=== PATIENT | female | born 1950 | race Caucasian/White ===

== ENCOUNTER 2020-04-19 12:53 | Outpatient (CLI) | payer MEDICARE ==
[~2020-04-19 12:53] MED LIST: ACET500T76 PO; AZIT250T89 PO; CANA300T PO; CARV25TA12 PO; EZET10TA70 PO; FURO40TA6 PO; GABA600T7 PO; HYDR-3240 PO; INSU100I17 SQ; LAMO200T3 PO; LEVO50TA5 PO; LINA290C PO; LOSA100T14 PO; METF1000 PO; OSEL75CA26 PO; PARO20TA4 PO; POTA8CAP20 PO; PRAM1TAB5 PO; PRAV80TA2 PO; TEMA30CA PO
[2020-04-19] MEDS ORDERED: ATOR40TA78 PO (14:22)
[2020-04-19] MEDS ORDERED: OZEMPIC SC (14:22)
[2020-04-19] MEDS ORDERED: EMPA25TA PO (14:22)
[2020-04-19] MEDS ORDERED: GABA800T5 PO (14:22)
[2020-04-19] MEDS ORDERED: LISI-167 PO (14:22)
[2020-04-19] MEDS ORDERED: INSU100I7 SQ-INSULIN (14:22)
[2020-04-19] MEDS ORDERED: LINA290C PO (14:22)
[2020-04-19 15:25] LABS: ALBUMIN 3.8 g/dL (3.4-5.0); ANION GAP 6 mmol/L (5-15); CALCIUM 9.5 mg/dL (8.5-10.1); CHLORIDE 103 mmol/L (98-107)
[2020-04-19 15:28] LABS: ALANINE AMINOTRANSFERASE 36 U/L (12-78); ALKALINE PHOSPHATASE 125 U/L (45-117); BILIRUBIN,TOTAL 0.5 mg/dL (0.2-1.0); CREATININE 0.85 mg/dL (0.55-1.02); TOTAL PROTEIN 7.8 g/dL (6.4-8.2)
== END 2020-04-19 23:59 | disposition home or self-care (01) ==
LOC: STAR 12:53
PROVIDERS: ATTEND Orthopaedic Surgery
DX: Z01.818 Encounter for other preprocedural examination (principal); G56.23 Lesion of ulnar nerve, bilateral upper limbs
CPT/HCPCS: 36415; 80053; 93005

== ENCOUNTER → 2020-04-22 | Outpatient (CLI) | payer MEDICARE ==
[~2020-04-22] MED LIST changes: +ATOR40TA78 PO; +EMPA25TA PO; +GABA800T5 PO; +INSU100I7 SQ-INSULIN; +LISI-167 PO; +OZEMPIC SC
== END | disposition home or self-care (01) ==
LOC: STAR 14:08
PROVIDERS: ATTEND Anesthesiology
DX: Z01.812 Encounter for preprocedural laboratory examination (principal); Z20.828 Contact with and (suspected) exposure to other viral communicable diseases
CPT/HCPCS: 36415; 87635

== ENCOUNTER 2020-04-27 08:19 | Day surgery (SDC) | payer MEDICARE ==
[~2020-04-27] VITALS: Ht 163.8 cm; Wt 88.3 kg
[~2020-04-27 08:19] MED LIST changes: +BUPIVACAINE/PF 0.5% ONE; +LIDOCAINE 1%, 20ML ONE
[2020-04-27] MEDS ORDERED: LACTATED RINGERS 1,000 ML IV SCH (08:52)
[2020-04-27] MEDS ORDERED: CHLORHEXIDINE 15 ML UDC MM ONE (09:00)
[2020-04-27 09:03] VITALS: BP 116/72
[2020-04-27] MEDS ORDERED: MIDAZOLAM 1 MG/ML, 2ML ONE (10:06)
[2020-04-27] MEDS ORDERED: FENTANYL PF 100 MCG/2ML ONE ×2 (10:06→11:26)
[2020-04-27] MEDS ORDERED: ONDANSETRON 2MG/ML, 2ML ONE ×2 (10:08)
[2020-04-27] MEDS ORDERED: DEXAMETHASONE 4 MG/ML, 1ML ONE ×2 (10:08)
[2020-04-27] MEDS ORDERED: PROPOFOL 10 MG/ML, 20ML ONE (10:09)
[2020-04-27] MEDS ORDERED: LIDOCAINE 1%, 20ML INFIL ONE (10:28)
[2020-04-27] MEDS ORDERED: BUPIVACAINE/PF 0.5% INFIL ONE (10:29)
[2020-04-27] MEDS ORDERED: DIAZEPAM 5 MG/ML, 2ML IVPush PRN (10:30)
[2020-04-27] MEDS ORDERED: ACETAMINOPHEN 325 MG TABLET PO PRN (10:30)
[2020-04-27] MEDS ORDERED: MEPERIDINE/PF 25MG/0.5ML IVPush PRN (10:30)
[2020-04-27] MEDS ORDERED: ONDANSETRON 2MG/ML, 2ML IVPush PRN (10:30)
[2020-04-27] MEDS ORDERED: OXYcodone 5 MG/5 ML ORAL.SOL UDC PO PRN (10:30)
[2020-04-27] MEDS ORDERED: DIPHENHYDRAMINE 50 MG/ML, 1ML IVPush PRN ×2 (10:30)
[2020-04-27] MEDS ORDERED: EPHEDRINE 50 MG/ML, 1ML IVPush PRN (10:30)
[2020-04-27] MEDS ORDERED: LABETALOL 5MG/ML, 20ML IV PRN (10:30)
[2020-04-27] MEDS ORDERED: PROMETHAZINE 25 MG/ML, 1ML IVPush PRN (10:30)
[2020-04-27] MEDS ORDERED: MIDAZOLAM 1 MG/ML, 2ML IV PRN (10:30)
[2020-04-27] MEDS ORDERED: hydrALAzine 20 MG/ML, 1ML IV PRN (10:30)
[2020-04-27] MEDS ORDERED: HYDROmorphone 1 MG/ML, 1ML INJ IVPush PRN (10:30)
[2020-04-27] MEDS ORDERED: ALBUTEROL SULFATE 2.5 MG/3 ML NPPB PRN (10:30)
[2020-04-27] MEDS ORDERED: PROMETHAZINE 12.5 MG SUPP PR PRN (10:30)
[2020-04-27] MEDS ORDERED: OXYcodone 5 MG/5 ML ORAL.SOL UDC ONE (11:26)
[2020-04-27] MEDS: FENTANYL PF 100 MCG/2ML IV PRN ×2 (11:30→11:35)
[2020-04-27] MEDS ORDERED: DIAZEPAM 5 MG TABLET PO ONE (12:30)
[2020-04-27] MEDS ORDERED: KETOROLAC 30 MG/1 ML IVPush ONE (12:30)
== END 2020-04-27 14:15 | disposition home or self-care (01) ==
LOC: OUT 08:19
PROVIDERS: ATTEND Orthopaedic Surgery
DX: G56.22 Lesion of ulnar nerve, left upper limb (principal); I10 Essential (primary) hypertension; E11.9 Type 2 diabetes mellitus without complications; G47.33 Obstructive sleep apnea (adult) (pediatric); E03.9 Hypothyroidism, unspecified; Z88.0 Allergy status to penicillin; Z88.8 Allergy status to other drugs, medicaments and biological substances; Z86.718 Personal history of other venous thrombosis and embolism; Z79.899 Other long term (current) drug therapy; Z87.891 Personal history of nicotine dependence; Z72.89 Other problems related to lifestyle; Z79.4 Long term (current) use of insulin; Z82.49 Family history of ischemic heart disease and other diseases of the circulatory system; Z83.3 Family history of diabetes mellitus
CPT/HCPCS: 64718; 82962; J1100; J1885; J2250; J2405; J2704; J3010; J7120

== ENCOUNTER → 2020-06-10 | Outpatient (CLI) | payer MEDICARE ==
[~2020-06-10] MED LIST changes: +Acyclovir PO; +BACL-19 PO; +BETAMETHASONE 6 MG/ML, 5ML IM ONE; +DIPH25CA61 PO; +HYDR-3245 PO; -LIDOCAINE 1%, 20ML ONE; +LIDOCAINE/PF 1%, 30ML ONE; +MULT-658 PO; +OXYC-307 PO; +ROPI0.5T4 PO; +percocet PO; +vicodin PO
[2020-06-10 17:13] LABS: CHLORIDE 108 mmol/L (98-107)
[2020-06-10 17:21] LABS: ALANINE AMINOTRANSFERASE 20 U/L (12-78); ALBUMIN 3.5 g/dL (3.4-5.0); ALKALINE PHOSPHATASE 110 U/L (45-117); ANION GAP 4 mmol/L (5-15); BILIRUBIN,TOTAL 0.3 mg/dL (0.2-1.0); CALCIUM 9.3 mg/dL (8.5-10.1); CREATININE 0.74 mg/dL (0.55-1.02); TOTAL PROTEIN 7.2 g/dL (6.4-8.2)
== END | disposition home or self-care (01) ==
LOC: STAR 14:17
PROVIDERS: ATTEND Orthopaedic Surgery
DX: Z01.812 Encounter for preprocedural laboratory examination (principal); Z20.828 Contact with and (suspected) exposure to other viral communicable diseases; G56.20 Lesion of ulnar nerve, unspecified upper limb; M65.341 Trigger finger, right ring finger
CPT/HCPCS: 36415; 80053; 87635

== ENCOUNTER 2020-06-15 06:13 | Day surgery (SDC) | payer MEDICARE ==
[~2020-06-15] VITALS: Ht 162.6 cm; Wt 88.0 kg
[~2020-06-15 06:13] MED LIST changes: -BETAMETHASONE 6 MG/ML, 5ML IM ONE; -BUPIVACAINE/PF 0.5% ONE; -LIDOCAINE/PF 1%, 30ML ONE
[2020-06-15 06:56] VITALS: BP 132/78
[2020-06-15] MEDS ORDERED: LACTATED RINGERS 1,000 ML IV SCH (07:00)
[2020-06-15] MEDS ORDERED: CHLORHEXIDINE 15 ML UDC MM ONE (07:00)
[2020-06-15] MEDS ORDERED: CHLORHEXIDINE 15 ML UDC ONE (07:02)
[2020-06-15] MEDS ORDERED: MEPERIDINE/PF 25MG/0.5ML IVPush PRN (07:30)
[2020-06-15] MEDS ORDERED: PROMETHAZINE 25 MG/ML, 1ML IVPush PRN (07:30)
[2020-06-15] MEDS ORDERED: LABETALOL 5MG/ML, 20ML IV PRN (07:30)
[2020-06-15] MEDS ORDERED: HYDROmorphone 1 MG/ML, 1ML INJ IVPush PRN (07:30)
[2020-06-15] MEDS ORDERED: ALBUTEROL SULFATE 2.5 MG/3 ML NPPB PRN (07:30)
[2020-06-15] MEDS ORDERED: ACETAMINOPHEN 325 MG TABLET PO PRN (07:30)
[2020-06-15] MEDS ORDERED: OXYcodone 5 MG/5 ML ORAL.SOL UDC PO PRN ×2 (07:30→12:00)
[2020-06-15] MEDS ORDERED: LORazepam 2 MG/ML, 1ML IVPush PRN (07:30)
[2020-06-15] MEDS ORDERED: MIDAZOLAM 1 MG/ML, 2ML ONE (08:04)
[2020-06-15] MEDS ORDERED: FENTANYL PF 100 MCG/2ML ONE ×3 (08:04→09:19)
[2020-06-15] MEDS ORDERED: DEXAMETHASONE 4 MG/ML, 1ML ONE (08:06)
[2020-06-15] MEDS ORDERED: PROPOFOL 10 MG/ML, 20ML ONE (08:06)
[2020-06-15] MEDS ORDERED: ONDANSETRON 2MG/ML, 2ML ONE (08:06)
[2020-06-15] MEDS ORDERED: CEFAZOLIN 1,000 MG ONE (08:06)
[2020-06-15] MEDS ORDERED: PHENYLEPHRINE 10 MG/ML ONE (08:09)
[2020-06-15] MEDS ORDERED: LIDOCAINE-MPF 2% ,5ML ONE (08:31)
[2020-06-15] MEDS: FENTANYL PF 100 MCG/2ML IV PRN ×4 (09:09→09:56)
[2020-06-15] MEDS ORDERED: ACETAMINOPHEN 650 MG/20.3 ML UDC ONE (09:19)
[2020-06-15] MEDS ORDERED: OXYcodone 5 MG/5 ML ORAL.SOL UDC ONE (09:20)
== END 2020-06-15 14:10 | disposition home or self-care (01) ==
LOC: OUT 06:13
PROVIDERS: ATTEND Orthopaedic Surgery
DX: G56.21 Lesion of ulnar nerve, right upper limb (principal); M65.341 Trigger finger, right ring finger; E11.9 Type 2 diabetes mellitus without complications; G47.33 Obstructive sleep apnea (adult) (pediatric); J45.909 Unspecified asthma, uncomplicated; I10 Essential (primary) hypertension; Z88.0 Allergy status to penicillin; Z88.8 Allergy status to other drugs, medicaments and biological substances; Z79.899 Other long term (current) drug therapy; Z87.891 Personal history of nicotine dependence; Z72.89 Other problems related to lifestyle; Z83.3 Family history of diabetes mellitus; Z82.3 Family history of stroke; Z82.49 Family history of ischemic heart disease and other diseases of the circulatory system
CPT/HCPCS: 26055; 64718; 82962; J0690; J0702; J1100; J2250; J2370; J2405; J2704; J3010; J7120

== ENCOUNTER 2020-06-27 13:04 | Outpatient (CLI) | payer MEDICARE ==
[2020-06-27] MEDS ORDERED: OMNIPAQUE 350 MG/ML, 100ML BOTTLE ONE (14:30)
[2020-07-04] MEDS ORDERED: CEFD300C37 PO (16:57)
== END 2020-06-27 23:59 | disposition home or self-care (01) ==
LOC: RAD 13:04
PROVIDERS: ATTEND Family Medicine
DX: N13.30 Unspecified hydronephrosis (principal); N13.4 Hydroureter; M48.56XA Collapsed vertebra, not elsewhere classified, lumbar region, initial encounter for fracture; M51.36 Other intervertebral disc degeneration, lumbar region; Z90.710 Acquired absence of both cervix and uterus
CPT/HCPCS: 74177; Q9967